=== PATIENT | male | born 1970 | race Caucasian/White ===

== ENCOUNTER 2019-10-30 16:59 | Emergency (ER) | payer BC, SELFPAY ==
[2019-10-30 17:03] VITALS: BP 181/82; PULSE 93; RESP 20; TEMP 36.3; O2SAT 98
--- NOTE | 2019-10-30 17:11 | W.ED.GENAD ---
Discharge Plan Disposition Patient Disposition: HOME Condition: Stable Discharge Details Chief Complaint: Orthopedic Clinical Impression: Gout attack, Subungual hematoma of digit of hand Primary Care Provider: Jimena,Local ED Provider: Raffi Rodriguez Home Meds and New Rx's Prescriptions: New cephalexin 500 mg capsule 500 mg PO TID 5 Days Qty: 15 RF: 0 Continued amlodipine 5 mg Tablet 5 mg PO DAILY RF: 0 olmesartan-hydrochlorothiazide 20-12.5 mg Tablet 1 tab PO DAILY RF: 0 Discharge Instructions Instructions: Gout (ED), Hematoma (ED) Additional Instructions: You may begin to soak the hand once or twice daily, then pat dry and replace dressing. You will likely lose the nail as it appears that the new nail is growing underneath. Take antibiotics as prescribed. I have enclosed your laboratories today which are indicative of you suffering an acute gout attack. Please follow-up with your regular doctor in [place]. Return to ER for any acute concerns. WBC 9.46 RBC 5.24 Hgb 15.5 Hct 46.2 MCV 88.2 MCH 29.6 MCHC 33.5 RDW 12.3 Plt Count 232 MPV 11.9 H Immature Gran % 0.2 Neutrophils % 70.9 Lymphocytes % 19.7 Monocytes % 6.7 Eosinophils % 2.2 Basophils % 0.3 Absolute Neutrophils 6.71 H Absolute Lymphocytes 1.86 Absolute Monocytes 0.63 Absolute Eosinophils 0.21 Absolute Basophils 0.03 Sodium 138 Potassium 3.6 Chloride 102 Carbon Dioxide 27.2 Anion Gap 8.8 BUN 15 Creatinine 0.81 Estimated GFR/1.73 m2 >= 60.00 Glucose 112 H Uric Acid 7.5 H Calcium 9.1 Magnesium Total Bilirubin 0.6 AST 36 ALT 77 H Alkaline Phosphatase 117 H Troponin I C-Reactive Protein 0.85 H Total Protein 8.3 H Albumin 4.1 Discharge Data Discharge Date/Time-TO BE ENTERED AT DEPARTURE: 10/30/19 18:06 Medical Decision Making 49-year-old male presents stating he slammed his hand in a door 10 days ago and removed the Band-Aid today, noticing that the nail has begun to lift out of its bed. He also states he has had some intermittent joint aches starting with left knee pain 3 weeks ago, now with right ankle and foot pain and swelling with redness at the base of the great toe. He is afebrile, interactive, noted to have blood pressure 181/82. He appears to have had a subungual hematoma and now will lose the nail of the right long finger. Possible early cellulitis beginning and will require oral antibiotics. Referred for x-ray without evidence of fracture, but question possible discrete soft tissue foreign body. See formal report. The nail was trephinated and subsequently dressed. I did discuss with him the question of soft tissue foreign body. His migratory joint pain is concerning for the possibility of gout. Screening laboratories obtained: CBC White blood cell count 9, hematocrit 46 and platelets 232. Uric acid 7.5, CRP 0.8. Discussed with him medical management of acute gout which she wishes to defer at this time and will follow up with his primary care in the [place] area. Stable and appropriate for discharge to home at this time. Lab Data Lab results reviewed: Yes I reviewed the patient's lab results. Labs: Laboratory Results - last 24 hr 10/30/19 10/30/19 10/30/19 17:20 17:20 17:22 WBC 9.46 RBC 5.24 Hgb 15.5 Hct 46.2 MCV 88.2 MCH 29.6 MCHC 33.5 RDW 12.3 Plt Count 232 MPV 11.9 H Immature Gran % 0.2 Neutrophils % 70.9 Lymphocytes % 19.7 Monocytes % 6.7 Eosinophils % 2.2 Basophils % 0.3 Absolute Neutrophils 6.71 H Absolute Lymphocytes 1.86 Absolute Monocytes 0.63 Absolute Eosinophils 0.21 Absolute Basophils 0.03 Sodium 138 Cancelled Potassium 3.6 Cancelled Chloride 102 Cancelled Carbon Dioxide 27.2 Cancelled Anion Gap 8.8 Cancelled BUN 15 Cancelled Creatinine 0.81 Cancelled Estimated GFR/1.73 m2 >= 60.00 Cancelled Glucose 112 H Cancelled Uric Acid 7.5 H Calcium 9.1 Cancelled Magnesium Cancelled Total Bilirubin 0.6 Cancelled AST 36 Cancelled ALT 77 H Cancelled Alkaline Phosphatase 117 H Cancelled Troponin I Cancelled C-Reactive Protein 0.85 H Total Protein 8.3 H Cancelled Albumin 4.1 Cancelled HPI General Mode of arrival: ambulatory. Date/Time Provider Initiated Documentation: 10/30/19 17:00. Limitations to Documentation: no limitations. Information obtained by: patient. History of Present Illness 49 year old M presents to the emergency department with the chief complaint of Right long finger injury 10 days ago, joint pain, described as moderate, Quality is described as dull, and is localized to the right and upper extremity. Patient reports no radiation. Patient started experiencing this day(s) and it has been constant. No relieving factors improve symptom(s), No exacerbating factors reported . Patient notes other (Joint ache with left knee swelling, right ankle and toe swelling.). Patient did receive the following treatments prior to arrival, none Related Data Home Medications Medication Instructions Recorded Confirmed amlodipine 5 mg PO DAILY 10/30/19 10/30/19 cephalexin 500 mg PO TID 5 Days #15 cap 10/30/19 olmesartan-hydrochlorothiazide 1 tab PO DAILY 10/30/19 10/30/19 Previous Rx's Medication Instructions Recorded cephalexin 500 mg PO TID 5 Days #15 cap 10/30/19 Allergies Allergy/AdvReac Type Severity Reaction Status Date / Time No Known Allergies Allergy Unverified 10/30/19 17:05 General Stated Complaint: Orthopedic RASHAWN: 4 Review of Systems Narrative: 6 systems reviewed and otherwise negative. [facility] Medical History Hypertension (Chronic) Social History Smoking/Tobacco Use Status: Never Alcohol Intake: current Alcohol Intake frequency: a few times a week Drug use: Never Substance use type: does not use Do you feel safe at home: Yes Do you feel safe in your relationship?: Yes Exam Narrative Exam Narrative: GEN: awake, alert, oriented 3. Pleasant, well groomed, interactive. HEAD: Normocephalic, atraumatic ENT: Mucous membranes moist, oropharynx unremarkable, External ear exam unremarkable EYES: PERRL, EOMI NECK: Full ROM, no ABDULKADIR, no menigismus CHEST/RESP: Nontender, clear to auscultation bilateral, no wheeze/rhonchi/rales CARDIOVASCULAR: RRR, no murmur, rub floyd. 2+ Rad pulse bilateral EXT: Right long finger with distal subungual hematoma and lifting of the nail out of this nailbed. The right ankle is edematous and tender, there is erythema at the right great toe base that is tender to touch. Neuro: Grossly normal neurologic exam, conversant, interactive. Psych: Speech fluent, thoughts congruent, affect normal Course Vital Signs Vital signs: Vital Signs Temperature 36.3 C L 10/30/19 17:03 Pulse 93 H 10/30/19 17:03 Respiratory Rate 10/30/19 17:03 Blood Pressure 181/82 H 10/30/19 17:03 Pulse Oximetry 98 10/30/19 17:03 Temperature 36.3 C L 10/30/19 17:03 Temperature Source Skin 10/30/19 17:03 Pulse 93 H 10/30/19 17:03 Respiratory Rate 10/30/19 17:03 Blood Pressure 181/82 H 10/30/19 17:03 Blood Pressure Position Sitting 10/30/19 17:03 Pulse Oximetry 98 10/30/19 17:03 Oxygen Delivery Method Room Air 10/30/19 17:03 Oxygen Flow Rate 0 10/30/19 17:03 Pain Level 1 10/30/19 17:03
--- NOTE | 2019-10-30 17:15 | DI.RAD_ITS ---
EXAM: XR FINGER RT MIDDLE CLINICAL HISTORY: Pain, trauma TECHNIQUE: COMPARISON: No exams were available for comparison FINDINGS: Three views were obtained. There are questionable faint soft tissue foreign bodies seen particularly at the level of distal phalanx on its volar aspect. No underlying fracture seen. IMPRESSION:
[2019-10-30 17:27] LABS: Abs Immature Grans 0.02 10^3/uL (0.0-0.06); Absolute Basophil Count 0.03 10^3/uL (0.0-0.2); Absolute Eosinophil Count 0.21 10^3/uL (0.0-0.7); Absolute Lymphocyte Count 1.86 10^3/uL (1.2-3.4); Absolute Monocyte Count 0.63 10^3/uL (0.1-0.8); Absolute Neutrophil Count 6.71 10^3/uL (1.2-6.7); Basophils % 0.3; Eosinophils % 2.2; HCT 46.2 % (40.0-50.0); HGB 15.5 g/dL (13.5-17.5); Immature Grans % 0.2; Lymphocytes % 19.7; MCH 29.6 pg (27.0-33.0); MCHC 33.5 % (32.0-36.0); MCV 88.2 fL (80-95); MPV 11.9 fL (8.0-11.0); Monocytes % 6.7; Neutrophils % 70.9; Platelet Count 232 10^3/uL (130-400); RBC 5.24 10^6/uL (4.36-5.78); RDW 12.3 % (11.8-14.1); RDW-SD 39.8 fL; WBC 9.46 10^3/uL (4.4-10.8)
--- NOTE | 2019-10-30 17:43 | DI.VRAD_ITS ---
PROCEDURE INFORMATION: Exam: XR Right Finger(s) Exam date and time: 10/30/2019 5:32 PM Age: 49 years old Clinical indication: Pain and injury or trauma; Injury history: Slammed finger in door; Initial encounter; Blunt trauma (contusions or hematomas; Right; Middle finger; Finger(s); Patient HX: Pain, trauma TECHNIQUE: Imaging protocol: XR Right fingers. Views: Minimum 2 views. COMPARISON: No relevant prior studies available. FINDINGS: Bones/joints: Osseous anatomic alignment is well preserved. No acutely displaced fracture or dislocation. Joint spaces are well preserved. Soft tissues: Soft tissue swelling about the middle finger. There are several linear and punctate radiopaque structures projecting in the soft tissues at the tip of the middle finger, measuring up to 1.7 mm, concerning for possible foreign bodies. IMPRESSION: Soft tissue swelling about the middle finger and concern for possible sub 2 mm soft tissue foreign bodies. Dictated and Authenticated by: Mark Carroll MD. Ordering:STU Nugent MD
[2019-10-30 17:44] LABS: ALT 77 U/L (16-63); AST 36 U/L (15-37); Albumin 4.1 g/dL (3.4-5.0); Alkaline Phosphatase 117 U/L (46-116); Anion Gap 8.8 mmol/L (3-11); BUN 15 mg/dL (7-18); Bilirubin, Total 0.6 mg/dL (0.2-1.0); C-Reactive Protein 0.85 mg/dL (0.0-0.3); CO2 27.2 mmol/L (21.0-32.0); CREATININE 0.81 mg/dL (0.70-1.30); Calcium 9.1 mg/dL (8.5-10.1); Chloride 102 mmol/L (98-107); Glucose 112 mg/dL (74-106); Potassium 3.6 mmol/L (3.5-5.1); Sodium 138 mmol/L (136-145); Total Protein 8.3 g/dL (6.4-8.2); Uric Acid 7.5 mg/dL (3.5-7.2)
[2019-10-30] MEDS: Cephalexin 500 MG CAP, 2 CAPS/BTL PO (18:04)
== END 2019-10-30 18:06 | disposition home or self-care (01) ==
LOC: ER 18:04
PROVIDERS: Emergency Provider Emergency Medicine
DX: S60.131A Contusion of right middle finger with damage to nail, initial encounter (principal); W23.1XXA Caught, crushed, jammed, or pinched between stationary objects, initial encounter; M10.9 Gout, unspecified; M79.605 Pain in left leg; I10 Essential (primary) hypertension
CPT/HCPCS: 11740; 36415; 80053; 99284; 73140; 83735; 84484; 84550; 85025; 86140; 99283